=== PATIENT | female | born 1935 | race Asian ===

== ENCOUNTER 2017-09-24 08:16 | Inpatient (IN) | payer MEDICAID ==
[~2017-09-24] VITALS: Ht 157.5 cm; Wt 68.0 kg
[2017-09-24] VITALS (12 sets, daily range): BP systolic 115–179; BP diastolic 61–82
--- NOTE | 2017-09-24 08:19 | NUR ---
PT BIBA FOR RASPATORY DISTRESS ON CPAP 5 THEN AT 0825 PLACED ON JEREMY V60 BIPAP WITH SETTINGS OF 10\5 RR 12 FIO1 40% ALARMS ON AND FUNCTIONING PROPERLY, AMBU BAG AT SIDE OF VENT AND VENT IS PLUGGED INTO RED OUTLET, I\L TX GIVEN WITH DUONEB 3ML WITH NO ADVERSE REACTION POST TX, PT WEARING LARGE FACE MASK WITH PROTETIC GEL IN PLACE B\S ARE COARSE WITH WHEEZING AT THE BASES, PT IS AWAKE AND ALERT WITH FAMILY AT BEDSIDE
--- NOTE | 2017-09-24 08:19 | NUR ---
PT BIBA ON CPAP TO BED 10
--- NOTE | 2017-09-24 08:20 | NUR ---
81F BIBA FROM HOME C/O SHORTNESS OF BREATH X LAST NIGHT. PER [facility], PT O2 SATURATION IN THE 70'S, INCREASED TO 98% ON CPAP AND TX OF ALBUTEROL IN FIELD. PT STATES OF HAVING A "COLD" SYMPTOMS X 4 DAYS. PT DENIES ANY FEVERS. PT IS AOX4. GCS=15. SKIN WARM/DRY/APPRIOPRIATE FOR ETHNICITY. RR ARE EVEN AND UNLABORED. PT ABLE TO TALK IN SHORT PHRASES. RT AND ER MD MARTINEZ BY BEDSIDE. PT PLACED ON CPAP. PT TOLERATING WELL. PULSE OX=96%. WILL CONTINUE TO MONITOR.
[2017-09-24] MEDS ORDERED: methylPREDNISolone SS 125 MG/2 ML VIAL IVP ONE (08:25)
[2017-09-24] MEDS ORDERED: ALBUTEROL SULFATE/IPRATROPIU 3 ML SOL IH ONE ×2 (08:25→08:55)
--- NOTE | 2017-09-24 08:26 | NUR ---
RT AT BEDSIDE
--- NOTE | 2017-09-24 08:36 | NUR ---
XRAY AT BEDSIDE
[2017-09-24] MEDS ORDERED: ACETAMINOPHEN EXTRA STRENGTH 500 MG TAB PO ONE (08:45)
[2017-09-24] MEDS ORDERED: MAG SULF 2000 MG/WATER PREMIX 50 ML IV ONE (08:55)
[2017-09-24 08:59] LABS: HEMATOCRIT 35.5 % (36-48); HEMOGLOBIN 11.2 g/dL (12.0-16.0); MEAN CORPUSCULAR HEMOGLOBIN 27 pg (27-31); MEAN CORPUSCULAR HGB CONC 32 g/dL (33-37); MEAN CORPUSCULAR VOLUME 86 fL (80-94); PLATELET COUNT (AUTO) 192 K/uL (140-450); RED BLOOD CELL COUNT(AUTO) 4.14 MIL/uL (4.20-5.40); RED CELL DISTRIBUTION WIDTH 15.4 % (11.6-13.7); WHITE BLOOD COUNT (AUTO) 19.4 K/uL (4.8-10.8)
[2017-09-24] MEDS ORDERED: HYDR100T79 PO (09:00)
[2017-09-24] MEDS ORDERED: XALOS OP (09:02)
[2017-09-24 09:03] LABS: ALBUMIN 3.1 g/dL (3.4-5.0); ASPARTATE AMINOTRANSFERASE 17 U/L (15-37); CARBON DIOXIDE 27.3 mmol/L (21-32); CHLORIDE 95 mmol/L (98-107); CREATININE 0.7 mg/dL (0.6-1.3); GLUCOSE 278 mg/dL (74-106); POTASSIUM 4.3 mmol/L (3.5-5.1); SODIUM SERUM 129 mmol/L (136-145); TOTAL BILIRUBIN 0.9 mg/dL (0.0-1.0); UREA NITROGEN, BLOOD 18 mg/dL (7-18)
[2017-09-24] MEDS ORDERED: SITA50TA3 PO (09:05)
[2017-09-24] MEDS ORDERED: ASPI81CT89 PO (09:05)
[2017-09-24] MEDS ORDERED: DOXA2TAB1 PO (09:06)
--- NOTE | 2017-09-24 09:09 | NUR ---
ABG DRAWN ON LR WITHOUT INCIDENT AND RESULTS GIVEN TO DR. MARTINEZ WITH CHANGES MADE TO BIPAP DECREASED FIO2 TO 30% AND I\L TX GIVEN WITH DUONEB 3ML WITH NO ADVERSE REACTION POST TX
[2017-09-24 09:11] LABS: LYMPHOCYTES % (MANUAL) 11 % (20-46); MONOCYTES % (MANUAL) 8 % (5-12)
[2017-09-24] MEDS ORDERED: LOSA100T25 PO (09:12)
[2017-09-24] MEDS ORDERED: METF500T PO (09:12)
[2017-09-24] MEDS ORDERED: MONT10TA35 PO (09:12)
[2017-09-24] MEDS ORDERED: PRAV20TA5 PO (09:12)
--- NOTE | 2017-09-24 09:31 | NUR ---
RT AT BEDSIDE
--- NOTE | 2017-09-24 09:49 | NUR ---
PT OFF BIPAP PLACED ON 3LNC PER DR. MARTINEZ
--- NOTE | 2017-09-24 09:55 | NUR ---
pt placed on 6l nc; patient tolerated well. pulse ox=96%. rr are tachypenic and labored. er md josé by bedside.
[2017-09-24] MEDS ORDERED: AZITHROMYCIN 250 MG TAB PO ONE (10:00)
[2017-09-24 10:01] LABS: APPEARANCE,URINE CLEAR (CLEAR); BILIRUBIN,URINE NEGATIVE (NEGATIVE); BLOOD, URINE NEGATIVE (NEGATIVE); COLOR,URINE YELLOW (YELLOW); LEUKOCYTE ESTERASE ,URINE NEGATIVE (NEGATIVE); NITRITE, URINE NEGATIVE (NEGATIVE); UGLUCOSE 1+ (NEGATIVE)
[2017-09-24] MEDS ORDERED: NACL 0.9% 1,000 ML IV ONE (10:05)
[2017-09-24] MEDS ORDERED: LEVOFLOXACIN 750 MG/D5W PREMIX 150 ML IV ONE (10:05)
[2017-09-24] MEDS ORDERED: HYDROcodone/APAP 7.5/325 MG 1 TAB PO PRN (10:20)
[2017-09-24] MEDS ORDERED: MORPHINE SULFATE 2 MG/ML SYR IVP PRN (10:20)
[2017-09-24] MEDS ORDERED: ACETAMINOPHEN 325 MG TAB PO PRN (10:20)
[2017-09-24] MEDS ORDERED: DOCUSATE SODIUM 100 MG GELCAP PO PRN (10:20)
[2017-09-24] MEDS ORDERED: ALBUTEROL SULFATE/IPRATROPIU 3 ML SOL IH PRN (10:30)
[2017-09-24 10:46] LABS: PROTHROMBIN TIME 10.7 secs (10.8-13.4)
[2017-09-24 10:58] LABS: RBC,URINE 0-5 (RARE) /HPF (0-5); WBC,URINE 0-5 (RARE) /HPF (0-5)
[2017-09-24 10:58] LABS: CHOL/HDL RATIO 1.7 (1-4.5); FREE T4 (FREE THYROXINE) 1.1 ng/dL (0.76-1.46); PHOSPHORUS 3.2 mg/dL (2.5-4.9); THYROID STIMULATING HORMONE 0.55 uIU/mL (0.34-3.74)
[2017-09-24] MEDS ORDERED: NACL 0.9% 1,000 ML IV SCH (11:00)
--- NOTE | 2017-09-24 11:10 | NUR ---
patient placed on non rebreather at 15L. Pt is aox4. RR are tachypenic and labored. er md josé aware. rt called.
--- NOTE | 2017-09-24 11:10 | NUR ---
Pt found laying supine in [facility]. RR and labored breathing increased. Pulse ox= 89%. Pt placed on non carmen 15L. Pulse ox=98%. er md josé by bedside.
--- NOTE | 2017-09-24 11:11 | NUR ---
RT AT BEDSIDE
--- NOTE | 2017-09-24 11:12 | NUR ---
rt peter left due to "intubation in icu"; pt remains on non caremn at 15L. er md josé aware of pt status.
--- NOTE | 2017-09-24 11:15 | NUR ---
er md josé by bedside. updating family on plan of care. family verbalized understanding. pt tolerating non carmen 10L. pulse ox=99%.
--- NOTE | 2017-09-24 11:29 | NUR ---
Note undone in EDM - 09/24/17 at 1132 by MISSY rt sabra by bedside, md orona and resident by bedside. updating family on plan of care. family verbalized understanding. pt tolerating non carmen 10L. pulse ox=99%.
--- NOTE | 2017-09-24 11:29 | NUR ---
rt sabra by bedside, md blankenship and resident by bedside. updating family on plan of care. family verbalized understanding. pt tolerating non carmen 10L. pulse ox=99%.
[2017-09-24] MEDS ORDERED: methylPREDNISolone SS 125 MG/2 ML VIAL IVP SCH (11:30)
[2017-09-24] MEDS ORDERED: FAMOTIDINE 20 MG TAB PO SCH (11:30)
[2017-09-24] MEDS ORDERED: BUDESONIDE 0.25 MG/2 ML NEBU INH SCH (11:30)
--- NOTE | 2017-09-24 11:32 | NUR ---
pt placed on cpap. fi02 40% rate 12. pt tolerating well. no acute resp distress. will continue to monitor.
--- NOTE | 2017-09-24 11:36 | NUR ---
INFORMED BY ADMITTING MD THAT PT WILL NEED TO GO TO ICU
--- NOTE | 2017-09-24 11:40 | NUR ---
PT TO BE ADMITTED TO ICU. CALLED ICU, WILL CALL JAR FILLER AND CALL ER BACK.
--- NOTE | 2017-09-24 11:42 | NUR ---
SPOKE WITH ICU; ICU TO CALL ON-CALL NURSE; WILL CALL BACK.
[2017-09-24] MEDS ORDERED: ACETYLCYSTEINE 10% (100 MG/ML) 100 MG/ML VIAL INH PRN (11:55)
[2017-09-24] MEDS ORDERED: FUROSEMIDE 20 MG/2 ML VIAL IVP SCH ×2 (11:57→21:00)
[2017-09-24] MEDS ORDERED: PIPERACILLIN/TAZOBACTAM 3.375 GM in DEXTROSE 5% 50 ML IV SCH (12:00)
[2017-09-24] MEDS ORDERED: LORATADINE 10 MG TAB PO SCH (12:00)
[2017-09-24] MEDS ORDERED: methylPREDNISolone SS 80 MG in WATER STERILE 1 ML IV ONE (12:35)
[2017-09-24] MEDS ORDERED: DOXAZOSIN 2 MG TAB PO SCH (12:55)
[2017-09-24] MEDS: PIPER/TAZO 2.25GM/D5W PREMIX 50 ML IV SCH ×2 (12:58→18:49)
[2017-09-24] MEDS ORDERED: MONTELUKAST SODIUM 10 MG TAB PO SCH (13:00)
--- NOTE | 2017-09-24 13:08 | NUR ---
spoke with sabra phillips, regarding inh treatment. rt aware of admitting.
--- NOTE | 2017-09-24 13:26 | NUR ---
PT TO BED ARTHUR. PT WITHOUT COMPLAINTS. PT REMAINS ON CPAP, PT TOLERATING WELL. RESP STATUS IMPROVED. NO ACUTE DISTRESS. PULSE OX=99%. WILL CONTINUE TO MONITOR.
[2017-09-24] MEDS ORDERED: DEXTROSE 50% 50 ML SYR IVP PRN (14:05)
--- NOTE | 2017-09-24 14:26 | NUR ---
Awaiting for icu bed. er md charge sharly aware. Pt tolerating cpap well. No acute resp distress. Will continue to monitor.
--- NOTE | 2017-09-24 14:48 | NUR ---
PATIENT TRANSFERRED TO ICU-3 ON BIPAP TO MASK INTERNAL BATTERY ON AND FUNCTIONAL WELL OXYGEN VIA E-TANK (1) 5000 PSI (2) 2000 PSI TOLERATED TRANSFER WELL WITHOUT ADVERSE REACTIONS NOTED SATURATION 98% ON FIO2 OF 40% HR 66
[2017-09-24] MEDS: ACETYLCYSTEINE 10% (100 MG/ML) 100 MG/ML VIAL INH SCH ×2 (14:57→19:36)
[2017-09-24] MEDS: ALBUTEROL SULFATE/IPRATROPIU 3 ML SOL IH SCH ×2 (15:00→19:34)
--- NOTE | 2017-09-24 15:00 | NUR ---
Patient will be admitted to care of [facility]. Admited to Tele. Will go to room ICU 3. Belongings list completed. Bedside report to Leatha THOMAS.
--- NOTE | 2017-09-24 15:00 | NUR ---
RECEIVED PT FROM ER VIA JODY, OBTAINED REPORT AT BEDSIDE, PT IS AAOX4, MANDRIN SPEAKING ONLY, ABLE TO FOLLOW COMMANDS AND MAKE NEEDS KNOWN, DENIES PAIN, NO S/S OF DISTRESS, WHEEZING LUNG SOUNDS, ON BIPAP WITH I/E 10/5, FIO2 40, AC 12, O2 SAT 99%, DENIES CHEST PAIN, SR ON CHILDCARE AIDE, HTN NOTED, DISTENDED ABDOMEN WITH ACTIVE BOWEL SOUNDS, CONTINENT WITH B&B'S, SKIN IS INTACT, WARM AND DRY TO TOUCH, +1 PITTING EDEMA NOTED TO BLE. IV SITE TO LEFT HAND 20GA, RUNNING NS AT 60 ML/HR. ABLE TO MOVE ALL EXTREMITIES, GENERALIZED WEAKNESS NOTED. EXPLAINED POC TO PT AND FAMILY MEMBERS, PT AND FAMILY MEMBERS VERBALIZED UNDERSTANDING, SAFETY MEASURE IN PLACE, HOB ELEVATED 30 DEGREES, CALL LIGHT WITHIN REACH, WILL CONTINUE TO MONITOR.
--- NOTE | 2017-09-24 15:06 | NUR ---
PT TRANSFERRED TO ICU 3 ON BIPAP NO CHANGES MADE
--- NOTE | 2017-09-24 16:30 | NUR ---
ACCU CHECK WITH RESULT OF 183MG/DL, 2 UNITS REGULAR INSULIN GIVEN AT THIS TIME.
--- NOTE | 2017-09-24 16:40 | NUR ---
ECHO DONE AT BEDSIDE.
[2017-09-24] MEDS: BLOOD GLUCOSE MONITORING 1 DEV DEV FS SCH ×2 (16:41→20:24)
[2017-09-24] MEDS: INSULIN LISPRO SLIDING SCALE 100 UNITS/ML VIAL SUBQ PRN (16:46)
--- NOTE | 2017-09-24 16:48 | NUR ---
BIPAP CHECK, FAMILY AT BEDSIDE PT IS HAVING ECHO DONE
[2017-09-24] MEDS: hydrALAZINE 25 MG TAB PO SCH (17:24)
[2017-09-24] MEDS: metFORMIN 500 MG TAB PO SCH (17:24)
--- NOTE | 2017-09-24 17:30 | NUR ---
SCHEDULED MEDICATION GIVEN, PT IS ABLE TO SWALLOW THE MEDICATION WHOLE AND TOLERATED WELL.
--- NOTE | 2017-09-24 17:42 | NUR ---
US DONE AT BEDSIDE.
--- NOTE | 2017-09-24 18:15 | NUR ---
PT IS ABLE TO EAT DINNER WITH O2 AT 2L VIA NC AT THIS TIME, PT TOLERATED WELL, O2 SAT 93%.
--- NOTE | 2017-09-24 19:05 | NUR ---
REPORT GIVEN TO WILLIAM TORRES AT BEDSIDE FOR CONTINUE OF CARE, PT IS IN STABLE CONDITION AT THIS TIME, FAMILY MEMBERS AT BEDSIDE.
--- NOTE | 2017-09-24 19:06 | NUR ---
PATIENT EATING AND IS ON NASAL CANNULA 2LPM SAO2-93% HR 78 RR 24BPM. TX HELD AT THIS TIME AND WILL ADMINISTER AFTER PATIENT FINISHES EATING, FAMILY IS AT BEDSIDE
--- NOTE | 2017-09-24 19:30 | NUR ---
RECEIVED PT FROM AM NURSE. POC UPDATED. WILL CONTINUE TO MONITOR.
--- NOTE | 2017-09-24 19:35 | NUR ---
UNABLE TO SCAN 2ML MUCOMYST 10% VIA SYRINGE OR FROM BAG- STATES INVALID BARCODE FORMAT. BHANU, RN WAS WITNESS THAT MEDICATION WAS GIVEN AND MANUAL ADMINISTERED VIA EMAR
--- NOTE | 2017-09-24 19:45 | NUR ---
SPOKE WITH FAMILY ABOUT PLAN OF CARE, INFORMED GRAND DAUGHTER ADDY AND DAUGHTER MARIA LUZ ABOUT PLAN OF CARE. WILL CONTINUE TO OBSERVE
--- NOTE | 2017-09-24 19:50 | NUR ---
PT AWAKE SITTING UP IN BED. AAOX4 ABLE TO MAKE SIMPLE COMMANDS. PRIMARILY SPEAKS MANDARIN. EXP WHEEZE NOTED. PT CURRENTLY ON NASAL CANNULA, TOLERATING WHILE TAKING PO INTAKE. SINUS RHYTHM ON MONITOR, +1 PITTING EDEMA NOTED. ABD SOFT NON DISTENDED ACTIVE BOWEL SOUNDS. PT USING BEDPAN TO VOID. L HAND PIV NOTED. SKIN INTACT, WILL CONTINUE TO MONITOR.
[2017-09-24] MEDS: LOSARTAN 50 MG TAB PO SCH ×2 (20:30→21:00)
[2017-09-24] MEDS: methylPREDNISolone SS 125 MG/2 ML VIAL IVP SCH ×2 (20:30→21:00)
[2017-09-24] MEDS: BRIMONIDINE TARTRATE 0.2% OP 5 ML BTL OP SCH (21:00)
[2017-09-24] MEDS: POLYVINYL ALCOHOL 1.4% OP 15 ML SOL OP SCH (21:00)
--- NOTE | 2017-09-24 22:00 | NUR ---
PT FAMILY CALLED FOR UPDATE. PT RESTING COMFORTABLY NO S/S OF ACUTE DISTRESS. WILL CONTINUE TO MONITOR.
[2017-09-24] MEDS: GABAPENTIN 300 MG CAP PO SCH (22:34)
--- NOTE | 2017-09-24 23:45 | NUR ---
PT HAVING PACS SOME PAUSES, @ NURSING STATION. AWARE. PT ASLEEP, AROUSABLE, ASYMPTOMATIC. WILL CONTINUE TO MONITOR.
--- NOTE | 2017-09-24 23:55 | NUR ---
PT FAMILY CALLING FOR UPDATE REGARDING ECHO. UNABLE TO RELAY ANY RESULTS DUE IT NOT BEING READ YET. DR. RUBIO SPOKE AT LENGTH TO FAMILY REGARDING PLAN OF CARE AND AND PENDING RESULTS, STATED ECHO RESULTS SHOULD BE READ IN THE NEXT DAY. NO OTHER ACUTE FINDINGS NOTED. WILL CONTINUE TO MONITOR.
[2017-09-25] VITALS (12 sets, daily range): BP systolic 128–177; BP diastolic 46–99
--- NOTE | 2017-09-25 00:25 | NUR ---
PT REQUESTING BEDPAN, X1BM NOTED.
[2017-09-25] MEDS: ALBUTEROL SULFATE/IPRATROPIU 3 ML SOL IH SCH ×4 (00:54→20:02)
[2017-09-25] MEDS: PIPER/TAZO 2.25GM/D5W PREMIX 50 ML IV SCH ×4 (00:55→17:10)
[2017-09-25] MEDS: ACETYLCYSTEINE 10% (100 MG/ML) 100 MG/ML VIAL INH SCH ×4 (00:56→20:01)
--- NOTE | 2017-09-25 04:11 | NUR ---
PT REPOSITIONED FOR COMFORT HR LOW 40, ASYMPTOMATIC, MD AWARE. WILL CONTINUE TO OBSERVE.
--- NOTE | 2017-09-25 04:34 | NUR ---
NOTIFIED MD ABOUT LOW HR LOW 39. MD ORDERED EKG FOR THE AM. MD MADE AWARE OF BLOOD PRESSURE 170S SBP, NO NEW ORDERS. WILL CONTINUE TO MONITOR.
[2017-09-25] MEDS: methylPREDNISolone SS 125 MG/2 ML VIAL IVP SCH ×2 (05:24→14:03)
--- NOTE | 2017-09-25 05:28 | NUR ---
BP HIGH 177/74 AND PATIENT IS MOST OF THE TIME IN [place] WITH HR IN THE 40"S 40-45/MIN; REFERRED TO DR. RUBIO BY TELEPHONE AND HE SAID HE'LL REVIEW OR LOOK INTO PATIENT'S MEDICATIONS.
[2017-09-25] MEDS ORDERED: hydrALAZINE 20 MG/ML VIAL IVP PRN (05:45)
[2017-09-25 06:00] LABS: HEMATOCRIT 34.7 % (36-48); HEMOGLOBIN 11.3 g/dL (12.0-16.0); MEAN CORPUSCULAR HEMOGLOBIN 28 pg (27-31); MEAN CORPUSCULAR HGB CONC 33 g/dL (33-37); MEAN CORPUSCULAR VOLUME 87 fL (80-94); PLATELET COUNT (AUTO) 211 K/uL (140-450); RED BLOOD CELL COUNT(AUTO) 3.99 MIL/uL (4.20-5.40); RED CELL DISTRIBUTION WIDTH 15.5 % (11.6-13.7); WHITE BLOOD COUNT (AUTO) 18.6 K/uL (4.8-10.8)
[2017-09-25 06:05] LABS: ANION GAP 10.2 (8-16); CARBON DIOXIDE 32.3 mmol/L (21-32); CHLORIDE 101 mmol/L (98-107); CREATININE 0.6 mg/dL (0.6-1.3); GLUCOSE 188 mg/dL (74-106); POTASSIUM 3.5 mmol/L (3.5-5.1); SODIUM SERUM 140 mmol/L (136-145); UREA NITROGEN, BLOOD 16 mg/dL (7-18)
[2017-09-25 06:10] LABS: MAGNESIUM 2.2 mg/dL (1.8-2.4); PHOSPHORUS 2.8 mg/dL (2.5-4.9)
--- NOTE | 2017-09-25 06:15 | NUR ---
PT TURNED REPOSITIONED, PLACED ON NASAL CANNULA. TOLERATING O2 VIA NC, WILL CONTINUE TO OBSERVE.
[2017-09-25 06:24] LABS: LYMPHOCYTES % (MANUAL) 5 % (20-46); MONOCYTES % (MANUAL) 4 % (5-12)
[2017-09-25 06:24] LABS: T4 (THYROXINE) 6.1 ug/dL (4.5-12.0)
[2017-09-25] MEDS: PANTOPRAZOLE 40 MG TABEC PO SCH (06:38)
--- NOTE | 2017-09-25 07:20 | NUR ---
RECEIVED BEDSIDE REPORT FROM TOOL ROOM MACHINIST RN, MELISSA, FOR CONTINUITY OF CARE. PATIENT IS AWAKE, AAOX4, ABLE TO FOLLOW COMMANDS, ABLE TO MAKE NEEDS KNOWN. PATIENT'S SKIN IS INTACT, WARM AND DRY, HAS PERIPHERAL IV SITE TO RIGHT HAND, ASYMPTOMATIC, PATENT AND INTACT WITH NS RUNNING AT 10 ML/HR. SHE IS ON NASAL CANNULA 2L, BREATHING IS EVEN AND UNLABORED, WHEEZING HEARD ON BILATERAL LUNG SOUNDS. S1 AND S2 HEART SOUNDS HEARD, SR ON MONITOR, CAP REFILL LESS THAN 3 SECS. ACTIVE BOWEL SOUNDS HEARD IN ALL FOUR QUADRANTS. HOB IS 30 DEGREES IN LOWEST POSSIBLE POSITION. CALL LIGHT WITHIN REACH, NO SIGNS OF DISTRESS NOTED, WILL MONITOR CLOSELY.
--- NOTE | 2017-09-25 07:22 | NUR ---
PT ENDORSED TO IRVING DAY SHIFT RN. WILL CONTINUE TO MONITOR.
--- NOTE | 2017-09-25 07:28 | NUR ---
PER MELISSA/RN NOCS PATEINT REQUESTED TO BE OFF BIPAP TO MASK RN REMOVED AND PLACED ON SUPPLEMENTAL OXYGEN AT 2 LPM VIA NC
[2017-09-25] MEDS: BLOOD GLUCOSE MONITORING 1 DEV DEV FS SCH ×4 (07:30→21:35)
--- NOTE | 2017-09-25 07:35 | NUR ---
FAMILY AT BEDSIDE, UPDATED ON PATIENT'S CONDITION. WILL CONTINUE TO MONITOR
--- NOTE | 2017-09-25 08:25 | NUR ---
RESIDENT PHYSICIANS ROUNDING ON PATIENT, UPDATED ON PATIENT'S CONDITION, WILL FOLLOW UP ON ANY ORDERS.
[2017-09-25] MEDS: metFORMIN 500 MG TAB PO SCH ×2 (08:56→17:10)
[2017-09-25] MEDS: ASPIRIN 81 MG TAB.CHEW PO SCH (08:56)
[2017-09-25] MEDS: ATORVASTATIN 20 MG TAB PO SCH (08:56)
[2017-09-25] MEDS: hydrALAZINE 25 MG TAB PO SCH ×3 (08:56→17:10)
[2017-09-25] MEDS: FAMOTIDINE 20 MG TAB PO SCH (08:57)
[2017-09-25] MEDS: GABAPENTIN 300 MG CAP PO SCH ×2 (08:57→21:52)
[2017-09-25] MEDS: LORATADINE 10 MG TAB PO SCH (08:58)
[2017-09-25] MEDS: BRIMONIDINE TARTRATE 0.2% OP 5 ML BTL OP SCH ×2 (09:00→21:52)
[2017-09-25] MEDS ORDERED: LATANOPROST 0.005% OP 2.5 ML BTL OP SCH (09:00)
[2017-09-25] MEDS: POLYVINYL ALCOHOL 1.4% OP 15 ML SOL OP SCH ×2 (09:00→21:00)
[2017-09-25] MEDS: MONTELUKAST SODIUM 10 MG TAB PO SCH (09:04)
[2017-09-25] MEDS ORDERED: FERRIC GLUCONATE 125 MG in NACL 0.9% 100 ML IV SCH (09:30)
[2017-09-25] MEDS ORDERED: methylPREDNISolone SS 80 MG in WATER STERILE 1 ML IV ONE (10:20)
[2017-09-25] MEDS ORDERED: methylPREDNISolone SS 125 MG/2 ML VIAL IVP SCH (11:30)
--- NOTE | 2017-09-25 11:38 | NUR ---
SPEECH THERAPIST AT BEDSIDE FOR SWALLOW EVAL, PATIENT PRESENTS NO SIGNS OF DISTRESS AT THIS TIME.
--- NOTE | 2017-09-25 11:54 | NUR ---
PARTY COORDINATOR note (bedside swallow evaluation completed) [id number]. Bedside swallow evaluation completed, please see report for details. PARTY COORDINATOR provided pt with education regarding evaluation. Pt pleasant, cooperative, participatory. No family present at this time. Recommend: 1) continue regular textures with thin liquids 2) general aspiration precautions (including pt must be fully awake/alert/upright for any PO intakes, alternate small/slow bites and sips, stop PO if pt becomes less alert/SOB/coughing) 3) no further PARTY COORDINATOR intervention indicated at this time. Physician may reorder if further concerns arise, as appropriate. G-codes: [id number] [id number] [facility] NOMS level 7. PVE for d/w RN (Omar) prior to and following bedside swallow evaluation completion.
[2017-09-25] MEDS ORDERED: cloNIDine 0.1 MG TAB PO PRN (11:55)
--- NOTE | 2017-09-25 13:29 | NUR ---
CM NOTE PER MAC OPERATOR NING SEND REVIEWS TO [facility] AND TO [facility] FAX# [phone] RED Mao PH# [phone] EXT [phone]. CONCURRENT REVIEW FAXED TO [facility] FAX# [phone] RED Mao PH# [phone] EXT [phone] AND TO [facility] [phone] RED LOREDOSA PH# [phone].
[2017-09-25] MEDS ORDERED: DOXAZOSIN 2 MG TAB PO SCH (14:00)
--- NOTE | 2017-09-25 14:08 | NUR ---
SPONTANEOUS ORAL EXPECTORATION OF MODERATE THICK YELLOW/GREEN SECRETIONS
--- NOTE | 2017-09-25 15:04 | NUR ---
CLEANED AND CHANGED PATIENT'S GOWN AND LINENS, PATIENT TOLERATED WELL. NO SIGNS OF DISTRESS NOTED.
--- NOTE | 2017-09-25 15:19 | NUR ---
PATIENT HAS BEEN SCREENED AND CATEGORIZED HIGH NUTRITION RISK. PATIENT WILL BE SEEN WITHIN 1-2 DAYS OF ADMISSION. 09/25/17 - 09/26/[address]
[2017-09-25] MEDS: INSULIN LISPRO SLIDING SCALE 100 UNITS/ML VIAL SUBQ PRN ×2 (17:09→21:42)
--- NOTE | 2017-09-25 19:00 | NUR ---
RECEIVED PATIENT REPORT AT BEDSIDE FROM ICU NURSE, PATIENT AMB WITH ASSISTIVE DEVICE AND STAND BY ASSISTANCE TO BED WITH STEADY GAIT, AAOX4, ON O2 @ 2L VIA NC, ON TELE MONITOR, PATIENT IV ON THE RIGHT HAND SL, SKIN INTACT. PATIENT THEN AMB TO THE RR AND VOIDED. PATIENT IS NOW SITTING ON CHAIR AT BEDSIDE WITH DAUGHTER. ALL NEEDS MET AT THIS TIME.
--- NOTE | 2017-09-25 19:10 | NUR ---
GAVE PATIENT REPORT AT BEDSIDE TO NIGHT NURSE, PT ENDORSED IN STABLE CONDITION.
--- NOTE | 2017-09-25 19:30 | NUR ---
RECEIVED REPORT. PT GCS 15. BILATERAL PERRLA NOTED. DENIES PAIN. DENIES DISCOMFORT. DENIES SOB. LUNGS SOUND WHEEZES BILATERALLY. EQUAL, UNLABORED BILATERAL BREATH NOTED. PT SATURATING LOW 90%S ON ROOM AIR, REPORT NO DIFFICULTY BREATHING. PT VERBALIZE UNDERSTANDING TO ALERT STAFF IF FEELING SOB. VITALS WITHIN NORMAL. SKIN WARM, DRY, INTACT. PT RECEIVED SITTING ON CHAIR. PT ABLE TO AMBULATE WITH STEADY. PULSE PALPABLE X 4 EXTREMITIES. ABDOMEN SOFT, NONTENDER. BOWEL SOUND PRESENT X 4 QUADRANT. NO S/SX OF ACUTE DISTRESS NOTED. FALL AND SAFETY PRECAUTION MAINTAINED. WILL CONTINUE TO MONITOR FOR CHANGES.
--- NOTE | 2017-09-25 19:50 | NUR ---
PT ASSISTED BACK TO BED. PT STATED FEELING SLIGHT SOB. PLACED BACK ON 2 L NC. TOLERATING WELL. PT REPORTED RELIEF.
--- NOTE | 2017-09-25 20:12 | NUR ---
PT ON ROOM AIR SPO2 92% RN AWARE. BIPAP STANDBY IN ROOM AT BEDSIDE. HHN TX OF DUONEB GIVEN. MUCOMYST NO AVAILABLE NOT GIVEN. DAUGHTER IS AT BEDSIDE AND TRANSLATING FOR PT. PER DAUGHTER WHEN SHE ASKED PT, PT DOESN'T HAVE ANY TROUBLE BREATHING. NO SOB OR DISTRESS NOTED. PT IS AWAKE AND ALERT. THAI SPEAKING ONLY. RN FANG AT BEDSIDE. PER PT'S DAUGHTER PT DOESN'T WANT TO BE WAKEN UP FOR MIDNIGHT TREATMENT. WILL CONTINUE TO MONITOR
[2017-09-25] MEDS: methylPREDNISolone SS 40 MG/ML VIAL IVP SCH (21:52)
[2017-09-25] MEDS: LOSARTAN 50 MG TAB PO SCH (21:52)
--- NOTE | 2017-09-25 22:00 | NUR ---
PT TOLERATING WELL ON RA. DENIES SOB. DENIES DISCOMFORT. NO S/SX OF ACUTE DISTRESS NOTED.
--- NOTE | 2017-09-25 23:45 | NUR ---
PT AMBULATE WITH CANE WITH STEADY GAIT TO BATHROOM AND BACK.
[2017-09-26] VITALS: BP 163/77
[2017-09-26] MEDS: PIPER/TAZO 2.25GM/D5W PREMIX 50 ML IV SCH ×2 (00:06→05:52)
--- NOTE | 2017-09-26 00:10 | NUR ---
PT SLEEPING IN BED. FLACC 0. NO S/SX OF ACUTE DISTRESS NOTED. WILL CONTINUE TO MONITOR FOR CHANGES.
--- NOTE | 2017-09-26 00:20 | NUR ---
ATTEMPT TO ADMINISTER PRN BP MED FOR ELEVASTED BP, PT STATED SHE WAS JUST AGITATED AND WANTS TO SLEEP AT THIS TIME INSTEAD.
[2017-09-26] MEDS: ALBUTEROL SULFATE/IPRATROPIU 3 ML SOL IH SCH ×2 (01:00→08:06)
[2017-09-26] MEDS: ACETYLCYSTEINE 10% (100 MG/ML) 100 MG/ML VIAL INH SCH ×2 (01:00→08:05)
--- NOTE | 2017-09-26 01:26 | NUR ---
HHN TX NOT GIVEN REQUESTED BY PT IF SHE IS ASLEEP TO NOT WAKE HER UP. PT IS ASLEEP. RN MAICOLG AWARE AND AT BEDSIDE. WILL CONTINUE TO MONITOR.
--- NOTE | 2017-09-26 02:08 | NUR ---
PT AMBULATE TO BATHROOM AND BACK. TOLERATED WELL. NO S/SX OF ACUTE DISTRESS NOTED.
[2017-09-26 04:00] VITALS: BP 187/80
--- NOTE | 2017-09-26 04:05 | NUR ---
PT ASSESSED AT 0345, PT WAS ASLEEP IN BED. CALL LIGHT NOTED TO BE ON AT 0400. UPON ENTERING PT'S ROOM, PT SITTING IN BED WITH SOCKS ON THE FLOOR. PER PT, SHE HAS BEEN WAITING FOR AN HOUR AFTER HITTING CALL LIGHT AND ALSO HAD SOILED THE SOCKS AND FLOOR WITH URINE. SOCKS NOTED TO BE WET BUT FLOOR NOTED TO BE DRY, NEW SOCKS PROVIDED AND FLOOR WIPED. PT DENIES NEEDING TO USE THE BATHROOM AT THIS TIME, STATED SHE'S GOING TO BED.
--- NOTE | 2017-09-26 05:45 | NUR ---
0405, ATTEMPTED TO PROVIDE PT PRN BP MEDICATION AT THIS TIME. PT REFUSED, STATING SHE WANTS TO SLEEP AND WAIT AWHILE. RECHECKED BP AT 0530. PT BP NOTED TO BE 197/61. EDUCATE PT ON IMPORTANCE OF BP CONTROL. PT STATED SHE'LL TAKE THE MEDICATION AFTER GOING TO THE BATHROOM. PRN BP MEDICATION PROVIDED AFTER ASSISTING PT TO BATHROOM. TOLERATED WELL.
[2017-09-26] MEDS: methylPREDNISolone SS 40 MG/ML VIAL IVP SCH (05:52)
[2017-09-26] MEDS: PANTOPRAZOLE 40 MG TABEC PO SCH (05:52)
[2017-09-26] MEDS ORDERED: methylPREDNISolone SS 40 MG in WATER STERILE 1 ML IV SCH (06:00)
[2017-09-26 06:16] LABS: HEMATOCRIT 36.4 % (36-48); HEMOGLOBIN 11.8 g/dL (12.0-16.0); MEAN CORPUSCULAR HEMOGLOBIN 28 pg (27-31); MEAN CORPUSCULAR HGB CONC 32 g/dL (33-37); MEAN CORPUSCULAR VOLUME 87 fL (80-94); PLATELET COUNT (AUTO) 241 K/uL (140-450); RED BLOOD CELL COUNT(AUTO) 4.18 MIL/uL (4.20-5.40); RED CELL DISTRIBUTION WIDTH 15.1 % (11.6-13.7); WHITE BLOOD COUNT (AUTO) 19.5 K/uL (4.8-10.8)
[2017-09-26] MEDS: INSULIN LISPRO SLIDING SCALE 100 UNITS/ML VIAL SUBQ PRN (07:20)
[2017-09-26] MEDS: BLOOD GLUCOSE MONITORING 1 DEV DEV FS SCH ×2 (07:20→11:26)
[2017-09-26 07:32] LABS: LYMPHOCYTES % (MANUAL) 1 % (20-46); MONOCYTES % (MANUAL) 1 % (5-12)
--- NOTE | 2017-09-26 07:43 | NUR ---
ASSUMED CONTINUITY OF CARE. NO SIGNS AND SYMPTOMS OF ACUTE DISTRESS NOTED. INITIAL ASSESSMENT DONE. KEEP COMFORTABLE ON BED. USED [employer] ([employer] PHONE) WITH RHIT NUMBER [id number]. INTRODUCED SELF TO PT.. EXPLAINED USE OF CALL LIGHT/BED/TV/BATHROOM. NO C/O PAIN. NO C/O SOB. ASKED TO CALL NURSE IF NEEDS HELP. VERBALIZED UNDERSTANDING. FALL PRECAUTION APPLIED. CALL LIGHT WITHIN REACH.
[2017-09-26 08:03] VITALS: BP 178/89
--- NOTE | 2017-09-26 08:05 | NUR ---
RESPIRATORY THERAPIST CAME FOR PT. SCHEDULED BREATHING TREATMENT.
[2017-09-26] MEDS: metFORMIN 500 MG TAB PO SCH (08:20)
[2017-09-26] MEDS: GABAPENTIN 300 MG CAP PO SCH (08:21)
[2017-09-26] MEDS: FAMOTIDINE 20 MG TAB PO SCH (08:23)
[2017-09-26] MEDS: hydrALAZINE 25 MG TAB PO SCH (08:23)
[2017-09-26] MEDS: MONTELUKAST SODIUM 10 MG TAB PO SCH (08:24)
[2017-09-26] MEDS: ATORVASTATIN 20 MG TAB PO SCH (08:24)
[2017-09-26] MEDS: LORATADINE 10 MG TAB PO SCH (08:25)
[2017-09-26] MEDS: ASPIRIN 81 MG TAB.CHEW PO SCH (08:25)
--- NOTE | 2017-09-26 08:45 | NUR ---
PHYSICAL THERAPIST CAME FOR PT. EVAL AND TREATMENT.
[2017-09-26] MEDS ORDERED: DOXAZOSIN 2 MG TAB PO SCH (09:00)
[2017-09-26] MEDS ORDERED: AMOX-1000 PO (09:17)
[2017-09-26] MEDS ORDERED: LACT1.4C PO ×2 (09:17→10:19)
[2017-09-26 09:33] LABS: ANION GAP 9.1 (8-16); CARBON DIOXIDE 32.6 mmol/L (21-32); CHLORIDE 101 mmol/L (98-107); CREATININE 0.6 mg/dL (0.6-1.3); GLUCOSE 191 mg/dL (74-106); POTASSIUM 3.7 mmol/L (3.5-5.1); SODIUM SERUM 139 mmol/L (136-145); UREA NITROGEN, BLOOD 18 mg/dL (7-18)
[2017-09-26] MEDS: POLYVINYL ALCOHOL 1.4% OP 15 ML SOL OP SCH (09:34)
[2017-09-26] MEDS: BRIMONIDINE TARTRATE 0.2% OP 5 ML BTL OP SCH (09:35)
--- NOTE | 2017-09-26 09:57 | NUR ---
ASSISTED PT. TO BATHROOM WITH PT. USES CANE ON THE THE OTHER HAND. TOLERATED WELL. NO C/O PAIN. NO SOB, NOTED.
[2017-09-26 10:01] LABS: MAGNESIUM 2.3 mg/dL (1.8-2.4); PHOSPHORUS 1.8 mg/dL (2.5-4.9)
[2017-09-26 10:05] VITALS: BP 134/78
[2017-09-26] MEDS ORDERED: CLIN300C2 PO (10:19)
[2017-09-26] MEDS ORDERED: LEVO750T2 PO (10:19)
--- NOTE | 2017-09-26 10:25 | NUR ---
MECHANIC WELDER CAME FOR PT. EKG AT BEDSIDE.
--- NOTE | 2017-09-26 11:56 | NUR ---
DR. MENDOZA SPOKE TO PT. DAUGHTER -MARIA LUZ AND PT. GRANDDAUGHTER -UTE REGARDING D/C INSTRUCTIONS AND TEACHING, MD FOLLOW-UP, MD D/C PRESCRIPTION LIST EDUCATION. MARIA LUZ AND UTE VERBALIZED UNDERSTANDING.
--- NOTE | 2017-09-26 12:45 | NUR ---
D/C HOME VIA WHEELCHAIR, ACCOMPANIED BY PT. DAUGHTER -MARIA LUZ AND PT. GRANDDAUGHTER -UTE. AWAKE, ALERT, AND ORIENTED X3. NO C/O PAIN. NO SOB, NOTED. IN STABLE CONDITION. INFORMED CHARGE NURSE PAULA RIOS.
[2017-09-26 17:03] LABS: FERRITIN 119 ng/mL (15-150); FOLIC ACID > 20.00 ng/mL (>3.0)
[2017-09-26 22:37] LABS: TRANSFERRIN 179 mg/dL (200 - 370)
== END 2017-09-26 12:45 | disposition home or self-care (01) | DRG 720 ==
LOC: MED 08:16 → MTU 10:18 → MIC 16:11 → MTU 09-25 17:48
PROVIDERS: ADMIT Family Medicine Sports Medicine; ATTEND Family Medicine Sports Medicine
PROC: 5A09357 Assistance with Respiratory Ventilation, Less than 24 Consecutive Hours, Continuous Positive Airway Pressure (ICD-10-PCS; principal; 2017-09-24)
PROC: 5A09357 Assistance with Respiratory Ventilation, Less than 24 Consecutive Hours, Continuous Positive Airway Pressure (ICD-10-PCS; 2017-09-24)
PROC: 5A09357 Assistance with Respiratory Ventilation, Less than 24 Consecutive Hours, Continuous Positive Airway Pressure (ICD-10-PCS; 2017-09-24)
DX: A41.9 Sepsis, unspecified organism (principal); J96.01 Acute respiratory failure with hypoxia; N17.0 Acute kidney failure with tubular necrosis; J69.0 Pneumonitis due to inhalation of food and vomit; I50.33 Acute on chronic diastolic (congestive) heart failure; E11.42 Type 2 diabetes mellitus with diabetic polyneuropathy; D68.59 Other primary thrombophilia; E11.51 Type 2 diabetes mellitus with diabetic peripheral angiopathy without gangrene; E11.65 Type 2 diabetes mellitus with hyperglycemia; D64.9 Anemia, unspecified; E87.1 Hypo-osmolality and hyponatremia; J45.901 Unspecified asthma with (acute) exacerbation; R80.9 Proteinuria, unspecified; M81.0 Age-related osteoporosis without current pathological fracture; I16.0 Hypertensive urgency; I11.0 Hypertensive heart disease with heart failure; E44.0 Moderate protein-calorie malnutrition
CPT/HCPCS: 36415; 36600; 71045; 80048; 80053; 81001; 82140; 82150; 82550; 82607; 82728; 82746; 82803; 82948; 83036; 83540; 83605; 83615; 83690; 83735; 83880; 84100; 84436; 84439; 84443; 84479; 84484; 85025; 85045; 85610; 85730; 87040; 87070; 87081; 87205; 87804; 89220; 92610; 93005; 93925; 93970; 94640; 94660; 97140; 97799; 99285; C1758; J1815; J1940; J1956; J2543; J2916; J2920; J2930; J3475; J7030; J7620; Q0092